=== PATIENT | female | born 1955 | race Caucasian/White ===

== ENCOUNTER 2016-12-15 08:27 | Inpatient (IN) | payer OTHER, MEDICARE ==
[~2016-12-15] VITALS: Ht 152.4 cm; Wt 59.4 kg
[~2016-12-15 08:27] MED LIST: AMOXICILLIN500 M3 PO; HALDOL 0.5MG T0.5 MG PO; QUETIAPINE FUM100 MG PO; TRAZODONE HCL50 M1 PO; ZOFRAN4 M1 SL
--- NOTE | 2016-12-15 08:37 | NUR ---
P presents to ER with sister who states patient has MR and has a hx of having behavioral outburts. Pt's sister states that patient has been more aggitated lately. She states patient peed in her bed last night which is not her norm. She states patient has also been constipated lately. Per sister patient had a small bowel movement this am. Pt tearful in triage.
--- NOTE | 2016-12-15 08:38 | NUR ---
PT TO [facility] RM 6 AWAITING PROVIDER EVAL
[2016-12-15] MEDS ORDERED: SEROQUEL50 M1 PO (08:42)
[2016-12-15] MEDS ORDERED: COLACE100 M1 PO (08:43)
[2016-12-15] MEDS ORDERED: FLAXSEED340 GM PO (08:44)
--- NOTE | 2016-12-15 08:45 | ED GENERAL ADULT ---
History of Present Illness General Chief Complaint: General Adult Stated Complaint: ?CONSTIPATION ?UTI/PT ACTING OUT Source: patient, family, old records Exam Limitations: poor historian (history of MR) Vital Signs & Intake/Output Vital Signs & Intake/Output Vital Signs Date Time Temp Pulse Resp B/P Pulse O2 O2 Flow FiO2 Ox Delivery Rate 12/15 1427 97.9 98 18 145/82 99 Room Air 12/15 1329 97.9 107 20 138/60 99 Room Air 12/15 0922 Room Air Room Air 12/15 0833 97.5 87 20 136/84 98 Room Air Allergies Coded Allergies: NO KNOWN ALLERGIES (12/15/16) Reconcile Medications Docusate Sodium (Colace) 100 MG CAPSULE 1 CAP PO BIDP PRN CONSTIPATION ( Reported) Flaxseed 340 GM POWDER 1 TSP PO D CONSTIPATION (Reported) Quetiapine Fumarate 100 MG TAB 1 TAB PO AT BEDTIME MENTAL HEALTH (Reported) Quetiapine Fumarate (Seroquel) 50 MG TABLET 1 TAB PO QAM MENTAL HEALTH ( Reported) Trazodone HCl 50 MG TABLET 0.5 TAB PO BID MENTAL HEALTH (Reported) Triage Note: P presents to ER with sister who states patient has MR and has a hx of having behavioral outburts. Pt's sister states that patient has been more aggitated lately. She states patient peed in her bed last night which is not her norm. She states patient has also been constipated lately. Per sister patient had a small bowel movement this am. Pt tearful in triage. Triage Nurses Notes Reviewed? yes HPI: Patient is a 61-year-old female with a history of mental retardation brought in by her sister for evaluation of agitation, constipation, abnormal urination. She reports symptoms onset yesterday. Patient was incontinent of urine multiple times over night which is unusual for her. Patient has not had a bowel movement for a couple of days, took flaxseed and stool softener with minimal bowel movement this morning. Patient's sister reports she has been more agitated than normal. Denies vomiting, fevers, chills, chest pain Past History Travel History Traveled to [place] past 21 day No Medical History Any Pertinent Medical History? see below for history Neurological: seizure, MR EENT: NONE Cardiovascular: NONE Respiratory: NONE Gastrointestinal: NONE Hepatic: cholelithiasis Renal: NONE Musculoskeletal: NONE Psychiatric: BEHAVIOR ISSUES MENTALLY CHALLENGED Endocrine: NONE Blood Disorders: NONE Cancer(s): NONE ARC CUTTER/Reproductive: NONE History of MRSA: No History of VRE: No History of CDIFF: No Surgical History Surgical History: non-contributory Psychosocial History Who do you live with Sister What is your primary language Vietnamese Tobacco Use: Never used Family History Family History, If Any: MOTHER SISTER FATHER Relation not specified for: FH: breast cancer FH: heart disease FH: stroke Hx Contributory? No Review of Systems Review of Systems Constitutional: Denies: chills, fever. EENTM: Reports: no symptoms. Respiratory: Denies: cough, short of breath. Cardiovascular: Denies: chest pain. GI: Reports: see HPI. Genitourinary: Reports: see HPI. Musculoskeletal: Reports: no symptoms. Skin: Reports: no symptoms. Neurological/Psychological: Reports: see HPI. Denies: headache. Hematologic/Endocrine: Reports: no symptoms. Immunologic/Allergic: Reports: no symptoms. Physical Exam Physical Exam General Appearance: well developed/nourished, alert, awake Head: atraumatic, normal appearance Eyes: Bilateral: normal appearance, PERRL, EOMI. Ears, Nose, Throat: normal pharynx, normal ENT inspection, hearing grossly normal Neck: normal inspection, supple, full range of motion Respiratory: normal breath sounds, chest non-tender, no respiratory distress, lungs clear Cardiovascular: regular rate/rhythm Gastrointestinal: normal bowel sounds, soft, diffuse lower abdominal tenderness Back: normal inspection, normal range of motion Extremities: normal inspection, normal capillary refill, normal range of motion, no edema Neurologic/Psych: no motor/sensory deficits, awake, alert, oriented x 3, normal gait, normal mood/affect Skin: intact, normal color, warm/dry Lymphatic: no anterior cervical nenita Core Measures ACS in differential dx? No CVA/TIA Diagnosis: No Severe Sepsis Present: No Septic Shock Present: No Progress Differential Diagnoses I considered the following diagnoses in my evaluation of the patient: Constipation, urinary tract infection, behavioral outbursts, intra-abdominal infection, electrolyte abnormalities, small bowel traction, colitis, diverticulitis Plan of Care: Orders Procedure Date/time Status Regular Diet 12/16 D Active Regular Diet 12/15 L Complete Regular Diet 12/15 D Active Pathway - chart 12/15 1907 Active House Staff 12/15 1907 Active SOCIAL WORK CONSULT 02/23 1908 Active Code Status 12/15 1908 Active Patient Data 12/15 1724 Active Admit to inpatient 12/15 1718 Active Intake & Output 12/15 1210 Active CULTURE,URINE 12/15 0852 Active URINALYSIS 12/15 0852 Complete LACTIC ACID 12/15 0852 Complete COMPREHENSIVE METABOLIC PANEL 12/15 851 Complete CBC WITHOUT DIFFERENTIAL 12/15 0852 Complete VTE Mechanical Prophylaxis 12/15 UNK Active Current Medications Sig/Yessica Start time Last Medication Dose Stop Time Status Admin Enoxaparin Sodium 40 MG DAILY 12/16 1000 AC (Lovenox) Laboratory Tests 12/15/16 1152: Lactic Acid Cancelled 12/15/16 0917: Anion Gap 10, Estimated GFR > 60, BUN/Creatinine Ratio 18.6, Glucose 90, Lactic Acid 0.7, Calcium 9.3, Total Bilirubin 0.6, AST 14, ALT 29, Alkaline Phosphatase 91, Total Protein 7.3, Albumin 4.1, Globulin 3.2, Albumin/Globulin Ratio 1.3, CBC w Diff NO MAN DIFF REQ, RBC 4.52, MCV 85.0, MCH 28.3, RDW 12.8, MPV 8.8, Gran % 72.9, Lymphocytes % 18.7 L, Monocytes % 6.5, Eosinophils % 1.5, Basophils % 0.4, Absolute Granulocytes 4.7, Absolute Lymphocytes 1.2, Absolute Monocytes 0.4, Absolute Eosinophils 0.1, Absolute Basophils 0, PUBS MCHC 33.3 12/15/16 0900: Urine Color YEL, Urine Clarity CLEAR, Urine pH 6.0, Ur Specific [place] 1.010, Urine Protein NEG, Urine Ketones NEG, Urine Nitrite NEG, Urine Bilirubin NEG, Urine Urobilinogen 0.2, Ur Leukocyte Esterase NEG, Ur Microscopic EXAM NOT REQUIRED, Urine Hemoglobin NEG, Urine Glucose NEG Microbiology 12/15 0900 URINE ROUT: Urine Culture - RECD 12/15/2016 10:56:45 AM: Results of labs and imaging discussed with the patient's sister. Patient's sister requesting case management evaluation for potential placement of patient due to her aggressive behavior at home and inability to safely take care of the patient home. Discussed with Dennise. (ANA MARIA LANCE,AMANDA) Diagnostic Imaging: Viewed by Me: CT Scan. Discussed w/RAD: CT Scan. Radiology Impression: PATIENT: KALYANI MONSALVE PRESENT AGE: 61 PATIENT ACCOUNT NO: [id number] : 54 LOCATION: [facility] ORDERING PHYSICIAN: AMANDA LANCE SERVICE DATE: 12/15/16- EXAM TYPE: CAT - CT ABD & PELVIS W IV CONTRAST EXAMINATION: CT ABDOMEN AND PELVIS WITH CONTRAST CLINICAL INFORMATION: Constipation, lower abdominal pain and tenderness COMPARISON: None TECHNIQUE: Multidetector volumetric imaging was performed of the abdomen and pelvis before and after the IV administration of 98 mL of Optiray 320 intravenous contrast. Sagittal and coronal reformatted images were obtained on the technologist's workstation. DLP: 344.71 mGy-cm FINDINGS: LUNG BASES: The visualized lung bases are unremarkable. LIVER, GALLBLADDER, AND BILIARY TREE: The liver is normal in size, shape, and attenuation. There is an approximately 1.0 cm left hepatic lobe cyst. No biliary ductal dilatation is present. The gallbladder is unremarkable. PANCREAS: Unremarkable. SPLEEN: Unremarkable. ADRENAL GLANDS: Unremarkable. KIDNEYS AND URETERS: The kidneys are normal in size, shape, and attenuation. There is a punctate right lower pole renal calculus. No hydronephrosis, hydroureter, or obstructing calculi seen. No perinephric stranding. BLADDER: Prominently distended without wall thickening. GASTROINTESTINAL TRACT: The small and large bowel are unremarkable, without evidence of obstruction or wall thickening. There is a moderate amount of stool in the colon. No free fluid or free air is seen. ABDOMINAL WALL: No significant hernia is appreciated. LYMPH NODES: Normal. VASCULAR: Scattered atherosclerotic calcifications are present. PELVIC VISCERA: There are coarse calcifications in the uterus, most likely secondary to fibroids. OSSEOUS STRUCTURES: Degenerative changes are present in the lower thoracic spine. IMPRESSION: 1. Moderate amount of stool in the colon. No evidence of bowel obstruction or abnormal wall thickening. 2. Prominent distention of the urinary bladder. 3. Punctate right lower pole renal calculus, without hydronephrosis. 4. Coarse calcifications in the uterus, most consistent with fibroids. DICTATED BY: OSMANY ZUNIGA MD DATE/ TIME DICTATED:12/15/161013 CANDY VENDOR:SUE DATE/TIME TRANSCRIBED: 12/15/161013 CONFIDENTIAL, DO NOT COPY WITHOUT APPROPRIATE AUTHORIZATION. < Electronically signed in Other Vendor System> SIGNED BY: OSMANY ZUNIGA MD 12/15/16 1032 Initial ED EKG: none Departure Departure Disposition: STILL A PATIENT Condition: Stable Clinical Impression Primary Impression: Hospital admission due to social situation Secondary Impressions: Constipation, Urinary incontinence Referrals: Kayce ZHAO MD (PCP/Family) Departure Forms: Customer Survey General Discharge Information Admission Note Spoke With: JOSE RODRIGUEZ M.D Documentation of Exam: Documentation of any treatments & extenuating circumstances including Concerns Regarding Discharge (functional status, medication knowledge or non-compliance, living conditions, etc.) that warrant an admission rather than observation: Patient combative at home, patient's sister is not able to take care of her. Will require long-term care placement. Patient will be admitted as a social admission to work on alf placement. Critical Care Note Critical Care Note Critical Care Time: non-applicable
--- NOTE | 2016-12-15 08:46 | NUR ---
CASI RODGERS AT BEDSIDE FOR EVAL
--- NOTE | 2016-12-15 08:54 | NUR ---
PT TO/FROM BATHROOM FOR URINE SPECIMEN
--- NOTE | 2016-12-15 09:02 | NUR ---
URINE TRIO OBTAINED/SENT TO LAB
--- NOTE | 2016-12-15 09:21 | NUR ---
IV ACCESS ESTABLISHED, #20 LAC LABS DRAWN/SENT (SST, LAVENDAR, BLUE AND SPEAR TOP TUBES)
[2016-12-15 09:34] LABS: ABSOLUTE BASOPHIL COUNT 0 /CUMM (0.0-0.2); ABSOLUTE EOSINOPHIL COUNT 0.1 /CUMM (0.0-0.7); ABSOLUTE GRANULOCYTE CT 4.7 /CUMM (1.4-6.5); ABSOLUTE LYMPH COUNT 1.2 /CUMM (1.2-3.4); ABSOLUTE MONOCYTE COUNT 0.4 /CUMM (0.10-0.60); BASOPHIL % 0.4 % (0.0-2.0); EOSINOPHIL % 1.5 % (0-5); GRANULOCYTE % 72.9 % (42.2-75.2); HEMATOCRIT 38.4 % (37-47); MEAN CORPUSCULAR HGB 28.3 PG (27.0-31.0); MEAN CORPUSCULAR HGB CONC 33.3 G/DL (33.0-37.0); MEAN PLATELET VOLUME 8.8 FL (7.4-10.4); PLATELET COUNT 284 /CUMM (130-400); RBC DISTRIBUTION WIDTH 12.8 % (11.5-14.5); RED BLOOD CELL CT 4.52 /CUMM (4.20-5.40); WHITE BLOOD CELL COUNT 6.5 /CUMM (4.8-10.8)
--- NOTE | 2016-12-15 10:32 | CT SCAN REPORT ---
EXAMINATION: CT ABDOMEN AND PELVIS WITH CONTRAST CLINICAL INFORMATION: Constipation, lower abdominal pain and tenderness COMPARISON: None TECHNIQUE: Multidetector volumetric imaging was performed of the abdomen and pelvis before and after the IV administration of 98 mL of Optiray 320 intravenous contrast. Sagittal and coronal reformatted images were obtained on the technologist's workstation. DLP: 344.71 mGy-cm FINDINGS: LUNG BASES: The visualized lung bases are unremarkable. LIVER, GALLBLADDER, AND BILIARY TREE: The liver is normal in size, shape, and attenuation. There is an approximately 1.0 cm left hepatic lobe cyst. No biliary ductal dilatation is present. The gallbladder is unremarkable. PANCREAS: Unremarkable. SPLEEN: Unremarkable. ADRENAL GLANDS: Unremarkable. KIDNEYS AND URETERS: The kidneys are normal in size, shape, and attenuation. There is a punctate right lower pole renal calculus. No hydronephrosis, hydroureter, or obstructing calculi seen. No perinephric stranding. BLADDER: Prominently distended without wall thickening. GASTROINTESTINAL TRACT: The small and large bowel are unremarkable, without evidence of obstruction or wall thickening. There is a moderate amount of stool in the colon. No free fluid or free air is seen. ABDOMINAL WALL: No significant hernia is appreciated. LYMPH NODES: Normal. VASCULAR: Scattered atherosclerotic calcifications are present. PELVIC VISCERA: There are coarse calcifications in the uterus, most likely secondary to fibroids. OSSEOUS STRUCTURES: Degenerative changes are present in the lower thoracic spine. IMPRESSION: 1. Moderate amount of stool in the colon. No evidence of bowel obstruction or abnormal wall thickening. 2. Prominent distention of the urinary bladder. 3. Punctate right lower pole renal calculus, without hydronephrosis. 4. Coarse calcifications in the uterus, most consistent with fibroids.
--- NOTE | 2016-12-15 11:03 | NUR ---
PER CASI RODGERS PT IS A CASE MANAGEMENT HOLD TO SEEK PLACEMENT
--- NOTE | 2016-12-15 11:06 | NUR ---
LUNCH TRAY ORDERED AT THIS TIME FROM [facility] IN [facility]
--- NOTE | 2016-12-15 11:38 | NUR ---
LUNCH TRAY PROVIDED TO PATIENT
--- NOTE | 2016-12-15 11:45 | NUR ---
12/15 CASE MGMT- MET WITH PT AND PT SISTER WHOM STATES PT RESIDES WITH HER AND THAT LATELY PT HAS BEEN HAVING SOME BEHAVIOR ISSUES AT HOME AND SISTER IS UNABLE TO CARE FOR PT AT HOME ANY LONGER. PT SISTER IS GUARDIAN OF PT. PT IS FOLLOWED BY [facility] MGMT HAYLEE [phone] AND VISITS [facility] VERY OFTEN AND JOHNATHON MATHEWS FOLLOWS PT AT [facility] [phone]
--- NOTE | 2016-12-15 15:00 | NUR ---
12/15 CASE MGMT- CALL TO [facility] RECEPTION CLERK AND MESSAGE LEFT. CALL [facility] AND SPOKE WITH BISI WHOM STATES PT IS THERE OFTEN AND IS KEPT VERY BUSY SO BEHAVIOR THERE IS NOT THAT BAD. PT CAN AT TIMES GET IMPATIENT AMD AGITATED AT TIMES APPROX LESS THAN 2 X A YEAR CAN GET VERBALLY / PHYSICALLY AGGRESSIVE BUT IF PT IS KEPT BUSY SHE ACTS WELL. BISI ALSO STATES HE SPOKE WITH HAYLEE AT [facility] TODAY AND STATES THAT MAKE STATED TO HIM THAT HE IS [facility] OF THE OFFICE TOMORROW AND WILL BE BACK MONDAY. CASE MGMT AWAITING RETURN CALL BACK FROM [facility] AND WILL START PAPERWORK FOR PLACEMENT.
--- NOTE | 2016-12-15 15:42 | NUR ---
DENA FROM CASE MANAGEMENT AT BEDSIDE AT PRESENT
--- NOTE | 2016-12-15 16:35 | NUR ---
12/15 CASE MGMT- SPOKE WITH PT SISTER BABS AND PT SISTERS REGARDING PLAN OF CARE. PT SISTER STATES SHE HAS A HEADACHE AND HER BP HAS BEEN ELEVATED AND SHE JUST CAN'T MANAGE PT AT HOME ANY MORE- PT SISTER AWARE WILL BE ISSUED DENIAL LETTER DUE TO NOT MEETING CRITERIA FOR MEDICAL ADMISSION. CASE MGMT WILL CONTINUE TO FOLLOW.
--- NOTE | 2016-12-15 16:42 | NUR ---
DINNER TRAY ORDERED FOR PATIENT, SPOKE WITH COS[employer] IN CASE MANAGEMENT
--- NOTE | 2016-12-15 16:48 | NUR ---
12/15 CASE MGMT- SPOKE WITH PT SISTER BABS AT BEDSIDE MADE AWARE OF DENIAL LETTER AT 4:48PM ON 12/15/16 AND REFUSING TO SIGN DENIAL LETTER. WAS GIVEN A COPY OF DENIAL LETTER.
--- NOTE | 2016-12-15 17:55 | History & Physical ---
SHIREEN MCDOWELL,ELIZA 12/15/16 1755: General Information and HPI Allergies/Medications Allergies: Coded Allergies: NO KNOWN ALLERGIES (12/15/16) Home Med list Docusate Sodium (Colace) 100 MG CAPSULE 1 CAP PO BIDP PRN CONSTIPATION ( Reported) Flaxseed 340 GM POWDER 1 TSP PO D CONSTIPATION (Reported) Quetiapine Fumarate 100 MG TAB 1 TAB PO AT BEDTIME MENTAL HEALTH (Reported) Quetiapine Fumarate (Seroquel) 50 MG TABLET 1 TAB PO QAM MENTAL HEALTH ( Reported) Trazodone HCl 50 MG TABLET 0.5 TAB PO BID MENTAL HEALTH (Reported) Past History Travel History Traveled to [facility] past 21 day No Medical History Neurological: seizure, MR EENT: NONE Cardiovascular: NONE Respiratory: NONE Gastrointestinal: NONE Hepatic: cholelithiasis Renal: NONE Musculoskeletal: NONE Psychiatric: BEHAVIOR ISSUES MENTALLY CHALLENGED Endocrine: NONE Blood Disorders: NONE Cancer(s): NONE 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
--- NOTE | 2016-12-15 18:11 | NUR ---
PT OUT OF ROOM ASKING FOR "NIGHT TIME PILLS", CASI RODGERS STATED HE WILL ORDER HER MEDICATIONS, PT BACK TO ROOM, STEADY GAIT NOTED.
--- NOTE | 2016-12-15 18:31 | NUR ---
PT MEDICATED WITH 100MG SEROQUEL PER EMAR
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
--- NOTE | 2016-12-15 19:37 | Admission Certification ---
Admission Certification Certification Statement - As attending physician, I certify that at the time of - admission, based on clinical presentation, severity of - symptoms, need for further diagnostic testing and - therapeutic interventions, and risk of adverse outcomes - without in-hospital treatment, in my clinical assessment, - this patient requires an acute hospital stay for a minimum - of two nights or longer. I have also considered psychsocial - factors such as support system, advanced age, financial - issues, cognitive issues, and failed out-patient treatments, - past re-admission history, safety of patient, and lack of - compliance as applicable. Specific rationale supporting this admission is: Agitation, constipation, social admission.
--- NOTE | 2016-12-15 19:46 | NUR ---
PT PLACED IN HOSPITAL BED, MOVED TO [facility], GIVEN BLANKETS, LIGHTS DIMMED FOR COMFORT
--- NOTE | 2016-12-15 20:03 | NUR ---
DR. WESLEY TO BEDSIDE FOR EVALUATION.
--- NOTE | 2016-12-15 20:44 | NUR ---
REPORT GIVENT TO MARIE KIRAN
--- NOTE | 2016-12-15 21:07 | NUR ---
PT TO ROOM 226 BED 1
--- NOTE | 2016-12-15 22:00 | NUR ---
PT ARRIVED TO FLOOR WITH SISTER AT BEDSIDE. VSS, DENIES PAIN. BED ALARM ON, ORIENTED TO THE FLOOR. CALL MURDOCK IN REACH.
[2016-12-15 22:39] VITALS: BP 130/68
[2016-12-16 06:59] VITALS: BP 106/70
--- NOTE | 2016-12-16 08:40 | NUR ---
Physical Therapy: Consult received and chart reviewed. Pt observed ambulating around unit with steady gait. Acute skilled PT is not indicated at this time. Thank you.
--- NOTE | 2016-12-16 12:00 | NUR ---
LATE ENTRY PT ALERT & CONFUSED, NOT ORIENTED TO ENVIRONMENT, WANDERING HALLS AND INTO OTHER PATIENT ROOMS. PSM ORDERED AT 0853 FOR DISORIENTATION. REPORT GIVEN TO SHARLENE WILLIS. WILL MONITOR.
[2016-12-16 13:55] VITALS: BP 120/60
--- NOTE | 2016-12-16 15:08 | PN- Housestaff ---
Subjective Follow-up For: Acute on chronic agitation Placement Subjective: A 61-year-old lady with a significant history of mental retardation since infant years presents to [facility] ED after sister noted that she has had increased agitation and is not able to be easily redirected and a home. Patient sister is sick in help in placement at a facility. No acute complaints other than incontinence is reported by family. Nursing staff reports the patient occasionally attempts to wonder off her room. Review of Systems Constitutional: Reports: no symptoms. Objective Last 24 Hrs of Vital Signs/I&O Vital Signs Date Time Temp Pulse Resp B/P Pulse O2 O2 Flow FiO2 Ox Delivery Rate 12/16 1355 97.2 100 20 120/60 96 Room Air 12/16 1336 Room Air Room Air 12/16 1317 Room Air Room Air 12/16 0659 97.6 93 20 106/70 97 Room Air 12/15 2239 97.6 84 20 130/68 96 Room Air 12/15 2104 98.0 90 18 142/74 98 Room Air Room Air Intake & Output 12/16 1600 12/16 0800 12/16 0000 Intake Total 120 Output Total Balance 120 Intake, Oral 120 Patient 59.874 kg Weight Physical Exam General Appearance: Alert, impaired cognitive function Skin: No Rashes, No Significant Lesion Lymphatic: Axillary nl, Cervical nl Cardiovascular: Regular Rate, Normal S1, Normal S2, No Murmurs, Gallops, Rubs Lungs: Clear to Auscultation, Normal Air Movement Abdomen: Normal Bowel Sounds, Soft, No Tenderness Neurological: Normal Gait, Strength at 5/5 X4 Ext, Normal Tone, Sensation Intact Extremities: No Cyanosis, No Edema, Normal Pulses, No Tenderness/Swelling Assessment/Plan Assessment: This is a 61-year-old lady with a significant history of mental retardation on on Seroquel is presented to [facility] ED by sister who reports recent increased episodes of agitation. Patient sister is seeking assistance in placement. Assessment and plan #Behavior changes Reported increased agitation and aggression at home. Currently on seroquel medication. Await social in watch caser recommendation and plans for placement. We'll continue to avoid delirium triggers oriented and continue redirecting techniques. Will assess if patient needs a quality assurance monitor final if she continues to attempt to ambulate outside her room. #Constipation Resolved. With reported 1 bowel movement yesterday. Problem List: 1. Hospital admission due to social situation 2. Altered mental status Pain Ratin Pain Location: none Pain Goal: Pain 4 or less Pain Plan: none Tomorrow's Labs & Rationales: none
--- NOTE | 2016-12-16 15:42 | PN- Att Addend ---
Attending MD Review Statement Attending Statement Attending MD Statement: examined this patient, discuss w/resident/PA/PLAQUE MAKER, agreed w/resident/PA/PLAQUE MAKER, reviewed EMR data (avail), discussed w/nursing Attending Assessment/Plan: Vital Signs Date Time Temp Pulse Resp B/P Pulse O2 O2 Flow FiO2 Ox Delivery Rate 12/16 1355 97.2 100 20 120/60 96 Room Air 12/16 1336 Room Air Room Air 12/16 1317 Room Air Room Air 12/16 0659 97.6 93 20 106/70 97 Room Air 12/15 2239 97.6 84 20 130/68 96 Room Air 12/15 2104 98.0 90 18 142/74 98 Room Air Room Air 61 years old lady with severe mental retardation IQ of a 3 years old without significant past medical history who lives with her sister and the sister who is the guardian provide support for the patient in all her ADLs. pt admitted with agiation. Case management looking for placement. d/w pts sister at bedside the care plan.
--- NOTE | 2016-12-16 16:08 | Discharge Summary ---
Visit Information Visit Dates Admission Date: 12/15/16 Discharge Date: 01/02/2017 Hospital Course Course Attending Physician: RANJITH CASTORNEA MD Primary Care Physician: Kayce ZHAO MD [facility] Course: Ms. Smart is a 61-year-old lady with a PMH of developmental delay who resides with her sister as a live-in guardian and provides full-time support with all her ADLs. Her mental retardation has been present since requiring 24 hour assistance with ADLs. Over the past 6 months she does report noticeable aggressive behavior with throwing things and punching her. 3 days prior to presentation she noted that she had not had a bowel movement which was also associated with urinary incontinence. On presentation in the emergency room the patient was unable to provide any pertinent review of systems. VS on admission: BP 136/84, HR 87, RR 20, SPO2 98% on RA, T 97.5 Physical exams: Alert, cooperative not oriented. No significant lesions in the skin. Moist mucous members. RRR, normal S1/S2. Lungs CTA BL. Normal bowel sounds, no tenderness to palpation. Pertinent labs: H&H 12.8/30.4, WBC 6.5, BUN/CR 13/0.7, sodium 143, potassium 3.9 , [place] 102, bicarbonate 31 CT abdomen pelvis: Moderate amount of stool in the colon. No evidence of bowel obstruction or abnormal wall thickening. Prominent distention of the urinary bladder. Punctate right lower pole renal calculus, without hydronephrosis. Coarse calcifications in the uterus, most consistent with fibroids. The patient to the general medicine floor for management of the following problems: 1. Constipation 2. Developmental delay/mental sedation Hospital course: 1. Constipation * CT findings as indicated above. We started the patient on scheduled senna 2 tabs PO daily with noticeable resolution of constipation 2. Developmental delay/mental sedation * Continued her Seroquel 50 mg PO daily. Patient was easily reoriented to verbal commands and companionship. The patient's sister mentioned how she looks forward to attending a weekly group classes but did appear to assimilate extremelywell during her hospital stay here at [facility] * Case management was successful with establishing rat exterminator care at [facility] pending DDS follow up for an appropriate residential 3. DVT prophylaxis * ALPs 4. CODE STATUS * DNR/DNI Allergies: Coded Allergies: NO KNOWN ALLERGIES (12/15/16) Disposition Summary Disposition Principal Diagnosis: Constipation Additional Diagnosis: Pending placement Discharge Disposition: SNF Discharge Instructions General Discharge Information Code Status: Do Not Resucitate/Intubat Patient's Diet: Regular diet Patient's Activity: As tolerated Follow-Up Instructions/Appts: Please follow-up with her PCP within one week after discharge. History, medications as directed Medications at Discharge Discharge Medications: Stop taking the following medications: Trazodone HCl (Trazodone HCl) 50 MG TABLET ORAL TWICE DAILY Qty = 30 Continue taking these medications: Quetiapine Fumarate (Quetiapine Fumarate) 100 MG TAB 1 Tablet ORAL AT BEDTIME Days = 90 Comments: NOT GIVEN IN HOSPITAL Quetiapine Fumarate (Seroquel) 50 MG TABLET 1 Tablet ORAL Every Morning Comments: Last Taken: 01/02/17 Time: 0930 Docusate Sodium (Colace) 100 MG CAPSULE 1 Capsule ORAL 2 x Daily as needed as needed for CONSTIPATION Comments: Last Taken: 01/01/17 Time: 0920 Flaxseed (Flaxseed) 340 GM POWDER 1 Teaspoonful ORAL Every Day Comments: NOT GIVEN Start taking the following new medications: Loratadine (Loratadine) 10 MG TABLET 10 Milligram ORAL DAILY Qty = 30 No Refills Lactulose (Lactulose) 20 GRAM/30 ML SOLUTION 20 Gram ORAL DAILY Qty = 30 No Refills Emollient Combination No.92 (Lubriderm Daily Moisture) 177 ML LOTION 1 Application On the skin THREE TIMES DAILY as needed for DRY SKIN Qty = 30 No Refills Copies To: Kayce ZHAO MD Attending MD Review Statement Documenting Attending: MILTON DEVINE MD Other Findings: The patient was seen and discussed with house staff. Agree with plan of care upon discharge.
[2016-12-17 06:30] VITALS: BP 124/60
--- NOTE | 2016-12-17 08:50 | PN- Housestaff ---
BETHANY MCDOWELL,ERNA 12/17/16 0849: Subjective Follow-up For: Agitation Long-term placement Subjective: Patient seen and examined. She is seen sitting upright in her chair playing with some toys happily in no acute distress. At her bedside is her family member whom is up-to-date about her medical condition and has no further questions at this time. There is a patient safety monitor at bedside whom offers no further collateral information regarding overnight events. Patient reports feeling well and that she had a bowel movement this morning, further subjective complaints are unobtainable. Review of systems is unobtainable. No overnight events reported. Review of Systems Constitutional: Reports: see HPI. Objective Last 24 Hrs of Vital Signs/I&O Vital Signs Date Time Temp Pulse Resp B/P Pulse O2 O2 Flow FiO2 Ox Delivery Rate 12/17 0630 97.6 108 18 124/60 96 Room Air 12/16 1355 97.2 100 20 120/60 96 Room Air 12/16 1336 Room Air Room Air 12/16 1317 Room Air Room Air Intake & Output 12/17 1600 12/17 0800 12/17 0000 Intake Total 500 Output Total Balance 500 Intake, Oral 500 Physical Exam General Appearance: Alert, Cooperative, No Acute Distress Other Physical Findings: General -well-developed, well-nourished elderly woman in no acute distress HEENT - NCAT, PERRL, EOMI, anicteric sclera Cardio - S1, S2 w/o murmurs/gallops/rubs Resp - CTA bilaterally w/o wheezing/rhochi/crackles GI - soft, nontender, nondistended, bowel sounds present Neuro - Awake and alert, CN II - XII grossly intact, mental impairment at baseline Extremities -minimal pulses, no cyanosis/clubbing/edema Current Medications: Current Medications Sig/Yessica Start time Last Medication Dose Route Stop Time Status Admin Acetaminophen 650 MG Q6P PRN 12/15 2199 AC PO Acetaminophen 1,000 MG Q6P PRN 12/15 2199 AC IV Docusate Sodium 100 MG BID 12/15 2129 AC 12/17 PO 0855 Enoxaparin Sodium 40 MG DAILY 12/16 1000 AC 12/17 SC 0856 Morphine Sulfate 1 MG Q6-PRN PRN 12/15 2199 AC IV Polyethylene Glycol 17 GM DAILY 02/23 2130 AC 02/25 PO 0856 Quetiapine Fumarate 50 MG QAM 12/17 1000 AC 12/17 PO 0855 Quetiapine Fumarate 100 MG 2200 12/16 2200 AC 12/16 PO 2117 Senna/Docusate Sodium 2 TAB DAILY 12/150 AC 12/17 PO 0855 Assessment/Plan Assessment: Patient remains calm while under supervision of family members or patient safety monitor. Placement is still pending per case management and bed search. Maintain patient safety monitor for increased disorientation/agitation. Problem list: -History of mental retardation, pending long-term placement -Increased agitation Plan: -General medicine -Avoid delirium triggers -Patient safety monitor -Continue home medications -Follow-up case management recommendations, bed search pending -Bowel regimen -DVT prophylaxis Problem List: 1. Mental retardation Pain Ratin Pain Location: None Pain Goal: Remain pain free Pain Plan: Pain Pathway Tomorrow's Labs & Rationales: None ACOSTA MCDOWELL,ALEKSANDAR 12/17/16 1206: Attending MD Review Statement Attending Statement Attending MD Statement: examined this patient, discuss w/resident/PA/POCKETED SPRING MACHINE OPERATOR, agreed w/resident/PA/POCKETED SPRING MACHINE OPERATOR, reviewed EMR data (avail), discussed with nursing, discussed with case mgmt Attending Assessment/Plan: 61-year-old female with mental retardation since childhood here with escalating behavior in terms of agitation and combativeness and case management is actively working on getting her placed. She has a sitter for behavioral issues and wandering into other patient's rooms.
[2016-12-17 14:50] VITALS: BP 110/6
[2016-12-17 22:24] VITALS: BP 108/60
[2016-12-18 06:35] VITALS: BP 112/60
--- NOTE | 2016-12-18 07:17 | PN- Housestaff ---
MARISSA MCDOWELL,ROBBIN 12/18/16 0716: Subjective Follow-up For: Agitation Long-term placement Subjective: Patient is awake and alert, is walking on the floor and reports has had bowel movement. She is dressed in savannah mouse clothes and is waiting to change her clothes. Appears in no distress. Review of Systems Constitutional: Denies: chills, fever, weakness. Respiratory: Reports: no symptoms. Gastrointestinal: Reports: no symptoms. Objective Last 24 Hrs of Vital Signs/I&O Vital Signs Date Time Temp Pulse Resp B/P Pulse O2 O2 Flow FiO2 Ox Delivery Rate 12/18 0635 97.6 87 18 112/60 96 Room Air 12/17 2224 97.8 94 18 108/60 95 Room Air 12/17 1450 97.9 109 18 110/6 97 Room Air Intake & Output 12/18 1600 12/18 0800 12/18 0000 Intake Total 100 Output Total Balance 100 Intake, Oral 100 Physical Exam General Appearance: Alert, Cooperative, No Acute Distress Skin: No Rashes, No Breakdown, No Significant Lesion HEENT: Atraumatic, EOMI Neck: Supple, No JVD Cardiovascular: Regular Rate, Normal S1, Normal S2, No Murmurs Lungs: Clear to Auscultation, Normal Air Movement Abdomen: Normal Bowel Sounds, Soft, No Tenderness Neurological: Normal Gait, Strength at 5/5 X4 Ext, Normal Tone, Cranial Nerves 3 -12 NL Extremities: No Clubbing, No Cyanosis, No Edema, Normal Pulses, No Tenderness/ Swelling Vascular: Normal Pulses, Pulses Symmetrical Current Medications: Current Medications Sig/Yessica Start time Last Medication Dose Route Stop Time Status Admin Acetaminophen 650 MG Q6P PRN 12/15 2199 AC PO Acetaminophen 1,000 MG Q6P PRN 12/15 2199 AC IV Docusate Sodium 100 MG BID 12/15 2129 AC 12/17 PO 0855 Enoxaparin Sodium 40 MG DAILY 12/16 1000 AC 12/17 SC 0856 Morphine Sulfate 1 MG Q6-PRN PRN 12/15 2199 AC IV Polyethylene Glycol 17 GM DAILY 12/15 2129 AC 12/17 PO 0856 Quetiapine Fumarate 50 MG QAM 12/17 1000 AC 12/17 PO 0855 Quetiapine Fumarate 100 MG 12/16 AC 12/17 PO 1938 Senna/Docusate Sodium 2 TAB DAILY 12/150 AC 12/17 PO 0855 Assessment/Plan Assessment: Patient remains calm while under supervision of family members or patient safety monitor. Placement is still pending per case management and bed search. Maintain patient safety monitor for increased disorientation/agitation. Problem list: -History of mental retardation, pending long-term placement -Increased agitation Plan: -General medicine -Avoid delirium triggers -Patient safety monitor -Continue home medications -Follow-up case management recommendations, bed search pending -Bowel regimen -DVT prophylaxis Problem List: 1. Mental retardation 2. Hospital admission due to social situation Pain Ratin Pain Location: none Pain Goal: Pain 4 or less Pain Plan: mild pp Tomorrow's Labs & Rationales: none ALEKSANDAR SHANE MD 12/18/16 0751: Attending MD Review Statement Attending Statement Attending MD Statement: examined this patient, discuss w/resident/PA/DECK WORKER, agreed w/resident/PA/DECK WORKER, reviewed EMR data (avail), discussed with nursing Attending Assessment/Plan: Patient with severe developmental disability and mental retardation who is here with agitated and combative behavior. She has a safety monitor .she is disoriented and walks all over the hospital and walks into other patient's rooms. We are awaiting placement.
[2016-12-18 15:20] VITALS: BP 118/76
[2016-12-18 22:17] VITALS: BP 92/44
[2016-12-18 22:59] VITALS: BP 104/60
[2016-12-19 06:21] VITALS: BP 110/70
--- NOTE | 2016-12-19 07:25 | PN- Housestaff ---
See Addendum Subjective Follow-up For: Agitation Subjective: Patient seen and examined bedside. Sitter in place with nursing reports indicating that patient still needs monitoring. No other acute event reported by nursing staff. Review of Systems Constitutional: Reports: no symptoms. Objective Last 24 Hrs of Vital Signs/I&O Vital Signs Date Time Temp Pulse Resp B/P Pulse O2 O2 Flow FiO2 Ox Delivery Rate 12/19 0621 97.8 90 18 110/70 100 Room Air 12/18 2259 87 104/60 96 Room Air 12/18 2217 98.1 81 18 92/44 97 Room Air 12/18 1520 97.6 84 18 118/76 100 Intake & Output 12/19 1600 12/19 0800 12/19 0000 Intake Total 100 100 Output Total Balance 100 100 Intake, Oral 100 100 Physical Exam General Appearance: Alert, Cooperative Skin: No Significant Lesion HEENT: Atraumatic, PERRLA, Mucous Membr. moist/pink Neck: Supple, No JVD Cardiovascular: Regular Rate, Normal S1, Normal S2, No Murmurs Lungs: Clear to Auscultation, Normal Air Movement Abdomen: Normal Bowel Sounds, Soft, No Tenderness, No Hepatospenomegaly Assessment/Plan Assessment: Patient remains calm while under supervision of family members or patient safety monitor. Placement is still pending per case management and bed search. Problem list: -History of mental retardation, pending long-term placement -Increased agitation -Constipation-resolved Plan: Spoke to sister over the phone and in person. Informed her that before patient goes to a facility, she is required to have not had a sitter for 24hrs. I discussed plans with sister regarding removing the sitter when she comes over and slowly monitor the patient and see if she is able to be redirected and not wander off. -Avoid delirium triggers -Patient safety monitor -Continue home medications -Follow-up case management recommendations, bed search pending. -Bowel regimen -DVT prophylaxis Problem List: 1. Mental retardation Pain Ratin Pain Location: none Pain Goal: Remain pain free Pain Plan: per pain pathway Tomorrow's Labs & Rationales: none-awiaiting placement
[2016-12-19 14:57] VITALS: BP 100/60
[2016-12-19 22:33] VITALS: BP 102/60
--- NOTE | 2016-12-20 07:23 | PN- Housestaff ---
Subjective Follow-up For: Agitation waiting for ecommerce project manager rehabilitation placement Subjective: Patient was seen and examined this morning, she has sitter. No overnight events reported by the nurse or the sitter. Vital signs are stable. No acute complaint. Review of Systems Constitutional: Denies: no symptoms. Objective Last 24 Hrs of Vital Signs/I&O Vital Signs Date Time Temp Pulse Resp B/P Pulse O2 O2 Flow FiO2 Ox Delivery Rate 12/20 1440 97.6 84 20 130/64 98 Room Air 12/20 0734 98.7 94 20 100/50 97 Room Air 12/19 2233 97.7 107 20 102/60 97 Room Air Intake & Output 12/20 1600 12/20 0800 12/20 0000 Intake Total 200 700 Output Total Balance 200 700 Intake, Oral 200 700 Number 0 Bowel Movements Physical Exam General Appearance: Alert, Cooperative, No Acute Distress Skin: No Rashes, No Breakdown, No Significant Lesion HEENT: Atraumatic, PERRLA, EOMI, Mucous Membr. moist/pink Neck: Supple Cardiovascular: Regular Rate, Normal S1, Normal S2, No Murmurs Lungs: Clear to Auscultation, Normal Air Movement Abdomen: Normal Bowel Sounds, Soft, No Tenderness Neurological: Normal Gait, Normal Speech, Strength at 5/5 X4 Ext, Normal Tone, Sensation Intact, Cranial Nerves 3-12 NL, Reflexes 2+ Extremities: No Clubbing, No Cyanosis, No Edema, Normal Pulses Assessment/Plan Assessment: Patient remains calm while under supervision of family members or patient safety monitor. Placement is still pending per case management and bed search. Problem list: -History of mental retardation, pending long-term placement -Increased agitation -Constipation Plan: #History of mental retardation, pending long-term placement -Waiting for alf rehabilitation placement versus half-way placement -Patient will continue to have 24 hour sitter for safety, given the underlying mental retardation, the 24 hour off sitter is not required in his case per heel caser -Avoid delirium triggers -Continue Patient safety monitor -Continue home medications -Bowel regimen for constipation, last bowel movement was 3 days ago -DVT prophylaxis ALPS -Code DNR DNI -Diet regular Problem List: 1. Mental retardation 2. Hospital admission due to social situation 3. Constipation Pain Ratin Pain Location: N/A Pain Goal: Pain 4 or less Pain Plan: Mild pain pathway Tomorrow's Labs & Rationales: NONE
[2016-12-20 07:34] VITALS: BP 100/50
--- NOTE | 2016-12-20 08:03 | NUR ---
Referral received from ED physician prior to patients social admit on 12/15/16. This patient is a 61 year old woman with MR. Admitted to hospital with complainta of constipation. The patient resides in [place] with her sister who is her guardian, but the sister is feeling overwhelmed and interested in placement. district sales manager has initiated bed search; due to patients MR, she will be a "level two" assessment prior to placement. Will follow peripherally and am able to support case managements efforts for appropriate discharge plan.
--- NOTE | 2016-12-20 09:07 | NUR ---
NIGHT RN SENT TEXT PAGE FOR SITTER TO BE RENEWED AT 0700. THIS RN SENT TEXT PAGE TO MD BASSETT AT 0830 FOR SITTER TO BE RENEWED. VERBALLY ASKED MD BASSETT TO RENEW SITTER AT 0845 AFTER ORDER NOT RENEWED. MD BASSETT REPLIED THAT SHE WAS IN ROUNDS AND WOULD GET TO IT WHEN SHE COULD. REMINDED THAT SITTERS HAD TO BE RENEWED EVERY 24 HOURS AND THAT SHE WAS ASKED BEFORE ROUNDS BEGAN. WILL CONTINUE TO REQUEST SITTER BE RENEWED.
--- NOTE | 2016-12-20 13:56 | PN- Att Addend ---
Attending MD Review Statement Attending Statement Attending MD Statement: examined this patient, discuss w/resident/PA/VOCATIONAL NURSE, agreed w/resident/PA/VOCATIONAL NURSE, reviewed EMR data (avail), discussed w/case mgmt Attending Assessment/Plan: Vital Signs Date Time Temp Pulse Resp B/P Pulse O2 O2 Flow FiO2 Ox Delivery Rate 12/20 0734 98.7 94 20 100/50 97 Room Air 12/19 2233 97.7 107 20 102/60 97 Room Air 12/19 1457 97.6 98 20 100/60 95 Awaiting placement . pt still needing sitter as pt is mentally challenged and needs supervision. d/w case management. Pt being evaluated by industrial engineering analyst care facility for placement. d/w sister and case management the care plan.
[2016-12-20 14:40] VITALS: BP 130/64
--- NOTE | 2016-12-20 15:14 | Patient Discharge Instructions ---
Discharge Instructions General Discharge Information You were seen/treated for: Constipation Pending placement Watch for these problems: Fevers, chills, abdominal pain, abdominal distention Special Instructions: Please follow-up with your PCP within 1-2 weeks of discharge. Please take all medications as directed Diet Continue normal diet: Yes Activity Full Activity/No Limits: Yes Acute Coronary Syndrome Inclusion Criteria At DC or during hospital stay patient has or had the following: ACS DIAGNOSIS No Discharge Core Measures Meds if any: Prescribed or Continued at Discharge Meds if any: NOT Prescribed or Continued at Discharge Congestive Heart Failure Inclusion Criteria At DC or during hospital stay patient has or had the following: CHF DIAGNOSIS No Discharge Core Measures Meds if any: Prescribed or Continued at Discharge Meds if any: NOT Prescribed or Continued at Discharge Cerebrovascular accident Inclusion Criteria At DC or during hospital stay patient has or had the following: CVA/TIA Diagnosis No Discharge Core Measures Meds if any: Prescribed or Continued at Discharge Meds if any: NOT Prescribed or Continued at Discharge Venous thromboembolism Inclusion Criteria VTE Diagnosis No VTE Type NONE VTE Confirmed by (Test) NONE Discharge Core Measures - Per Current guidelines, there needs to be overlap - treatment for the first 5 days of Warfarin therapy. - If discharged on Warfarin prior to 5 days of - overlap therapy, the patient will need to be - assessed for post discharge needs including - *Post discharge parental anticoagulation - *Warfarin and/or parental anticoagulation education - *Follow up date to check INR post discharge At least 5 days overlap therapy as Inpatient No Meds if any: Prescribed or Continued at Discharge Note: Overlap Therapy is Warfarin and Anticoagulant Meds if any: NOT Prescribed or Continued at Discharge
[2016-12-20 22:42] VITALS: BP 108/66
[2016-12-21 06:30] VITALS: BP 100/62
--- NOTE | 2016-12-21 07:13 | PN- Housestaff ---
Subjective Follow-up For: Mental retardation, intermediate manager rehabilitation placement Subjective: Patient was seen and examined this morning, she has sitter. No overnight events reported by the nurse or the sitter. Vital signs are stable. No acute complaint. Review of Systems Constitutional: Reports: no symptoms. Objective Last 24 Hrs of Vital Signs/I&O Vital Signs Date Time Temp Pulse Resp B/P Pulse O2 O2 Flow FiO2 Ox Delivery Rate 12/21 1419 97.6 104 20 114/58 96 12/21 0630 98.2 99 18 100/62 97 Room Air 12/20 2242 97.8 110 18 108/66 98 12/20 1717 Room Air Room Air Intake & Output 12/21 1600 12/21 0800 12/21 0000 Intake Total 720 120 Output Total Balance 720 120 Intake, Oral 720 120 Physical Exam General Appearance: Alert, Cooperative, No Acute Distress Skin: No Rashes, No Breakdown, No Significant Lesion HEENT: Atraumatic, PERRLA, EOMI, Mucous Membr. moist/pink Neck: Supple, No JVD Cardiovascular: Regular Rate, Normal S1, Normal S2, No Murmurs Lungs: Clear to Auscultation, Normal Air Movement Abdomen: Normal Bowel Sounds, Soft, No Tenderness Neurological: Normal Speech, Strength at 5/5 X4 Ext, Normal Tone, Sensation Intact, Cranial Nerves 3-12 NL, Reflexes 2+ Extremities: No Clubbing, No Cyanosis, No Edema, Normal Pulses Assessment/Plan Assessment: Patient remains calm while under supervision of family members or patient safety monitor. Placement is still pending per case management and bed search. Problem list: -History of mental retardation, pending long-term placement -Increased agitation -Constipation Plan: -Waiting for intermediate manager rehabilitation placement versus [facility] -Patient will continue to have 24 hour sitter for safety, given the underlying mental retardation, the 24 hour off sitter is not required in his case per rehabilitation case coordinator -Avoid delirium triggers -Continue Patient safety monitor -Continue home medications -Bowel regimen for constipation, patient was given lactulose today, she had small bowel movement this afternoon -DVT prophylaxis ALPS -Code DNR DNI -Diet regular Problem List: 1. Mental retardation 2. Hospital admission due to social situation Pain Ratin Pain Location: N/A Pain Goal: Remain pain free Pain Plan: Mild pain pathway Tomorrow's Labs & Rationales: NONE
--- NOTE | 2016-12-21 12:41 | PN- Att Addend ---
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 Sister who has been taking care for last few years is unable to do that . Constipation- added lactulose prn to stool softeners to see if that will help.
[2016-12-21 14:19] VITALS: BP 114/58
[2016-12-21 23:58] VITALS: BP 104/60
[2016-12-22 06:30] VITALS: BP 102/60
--- NOTE | 2016-12-22 07:08 | PN- Housestaff ---
Subjective Follow-up For: Mental retardation, [facility] rehabilitation placement Subjective: Patient was seen and examined this morning, she has sitter. No overnight events reported by the nurse or the sitter. Vital signs are stable. No acute complaint. Patient had small bowel movement yesterday Review of Systems Constitutional: Reports: see HPI. Objective Last 24 Hrs of Vital Signs/I&O Vital Signs Date Time Temp Pulse Resp B/P Pulse O2 O2 Flow FiO2 Ox Delivery Rate 12/22 1438 96.4 104 20 110/70 95 03 0630 97.9 70 18 102/60 95 Room Air 12/21 2358 97.5 92 20 104/60 96 Room Air Intake & Output 12/22 1600 12/22 0800 12/22 0000 Intake Total 800 100 100 Output Total Balance 800 100 100 Intake, Oral 800 100 100 Physical Exam General Appearance: Alert, Cooperative, No Acute Distress Skin: No Rashes, No Breakdown, No Significant Lesion HEENT: Atraumatic, PERRLA, EOMI, Mucous Membr. moist/pink Neck: Supple, No JVD Cardiovascular: Regular Rate, Normal S1, Normal S2, No Murmurs Lungs: Clear to Auscultation, Normal Air Movement Abdomen: Normal Bowel Sounds, Soft, No Tenderness Neurological: Normal Gait, Normal Speech, Strength at 5/5 X4 Ext, Normal Tone, Sensation Intact, Cranial Nerves 3-12 NL, Reflexes 2+ Extremities: No Clubbing, No Cyanosis, No Edema, Normal Pulses Assessment/Plan Assessment: Patient remains calm while under supervision of family members or patient safety monitor. Placement is still pending per case management and bed search. Problem list: -History of mental retardation, pending long-term placement -Increased agitation -Constipation Plan: -Waiting for [facility] rehabilitation placement versus [facility] placement -Patient will continue to have 24 hour sitter for safety, given the underlying mental retardation, the 24 hour off sitter is not required in his case per case operator -Avoid delirium triggers -Continue Patient safety monitor -Continue home medications -Bowel regimen for constipation -DVT prophylaxis ALPS -Code DNR DNI -Diet regular Problem List: 1. Mental retardation 2. Hospital admission due to social situation Pain Ratin Pain Location: None Pain Goal: Pain 4 or less Pain Plan: Mild pain pathway Tomorrow's Labs & Rationales: None
[2016-12-22 14:38] VITALS: BP 110/70
[2016-12-22 23:26] VITALS: BP 92/50
[2016-12-23 06:00] VITALS: BP 126/68
--- NOTE | 2016-12-23 07:11 | PN- Housestaff ---
See Addendum Subjective Follow-up For: Mental retardation, watermaster rehabilitation placement Subjective: Patient was seen and examined this morning, she has sitter. No overnight events reported by the nurse or the sitter. Vital signs are stable. No acute complaint. Patient had bowel movement yesterday. Review of Systems Constitutional: Reports: see HPI. Objective Last 24 Hrs of Vital Signs/I&O Vital Signs Date Time Temp Pulse Resp B/P Pulse O2 O2 Flow FiO2 Ox Delivery Rate 12/23 0600 98.0 91 20 126/68 99 Room Air 12/22 2326 98.1 92 20 92/50 97 Room Air 12/22 1438 96.4 104 20 110/70 95 Intake & Output 12/23 0800 12/23 0000 12/22 1600 Intake Total 600 960 800 Output Total Balance 600 960 800 Intake, IV 0 Intake, Oral 600 960 800 Number 1 Bowel Movements Physical Exam General Appearance: Alert, Cooperative, No Acute Distress Skin: No Rashes, No Breakdown, No Significant Lesion HEENT: Atraumatic, PERRLA, EOMI, Mucous Membr. moist/pink Neck: Supple, No JVD Cardiovascular: Regular Rate, Normal S1, Normal S2, No Murmurs Lungs: Clear to Auscultation, Normal Air Movement Abdomen: Normal Bowel Sounds, Soft, No Tenderness Neurological: Normal Gait, Normal Speech, Strength at 5/5 X4 Ext, Normal Tone, Sensation Intact, Cranial Nerves 3-12 NL, Reflexes 2+ Extremities: No Clubbing, No Cyanosis, No Edema, Normal Pulses Assessment/Plan Assessment: Patient remains calm while under supervision of family members or patient safety monitor. Placement is still pending per case management and bed search. Problem list: -History of mental retardation, pending long-term placement -Increased agitation -Constipation Plan: -Waiting for shelter rehabilitation placement versus assisted placement -Patient will continue to have 24 hour sitter for safety, given the underlying mental retardation, the 24 hour off sitter is not required in his case per top case assembler -Avoid delirium triggers -Continue Patient safety monitor -Continue home medications -Bowel regimen for constipation -DVT prophylaxis ALPS -Code DNR DNI -Diet regular Problem List: 1. Mental retardation 2. Hospital admission due to social situation Pain Ratin Pain Location: None Pain Goal: Pain 4 or less Pain Plan: Mild pain pathway Tomorrow's Labs & Rationales: None
[2016-12-23 14:31] VITALS: BP 98/60
[2016-12-23 22:08] VITALS: BP 94/56
[2016-12-24 06:59] VITALS: BP 120/60
--- NOTE | 2016-12-24 08:16 | PN- Housestaff ---
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 No overnight events reported by the nurse or the sitter. Vital signs are stable. No acute complaint. Patient had bowel movement today. Review of Systems Constitutional: Reports: see HPI. Objective Last 24 Hrs of Vital Signs/I&O Vital Signs Date Time Temp Pulse Resp B/P Pulse O2 O2 Flow FiO2 Ox Delivery Rate 12/24 0659 97.2 102 20 120/60 99 Room Air 12/23 2208 99.8 118 20 94/56 96 Room Air Intake & Output 12/24 1600 12/24 0800 12/24 0000 Intake Total 720 120 750 Output Total Balance 720 120 750 Intake, IV 0 Intake, Oral 720 120 750 Number 1 1 Bowel Movements Physical Exam General Appearance: Alert, Cooperative, No Acute Distress Skin: No Breakdown, No Significant Lesion, erythema over bilateral elbow, web of little finger bilateral HEENT: Atraumatic, PERRLA, EOMI, Mucous Membr. moist/pink Cardiovascular: Regular Rate, Normal S1, Normal S2, No Murmurs Lungs: Clear to Auscultation, Normal Air Movement Abdomen: Normal Bowel Sounds, Soft, No Tenderness Neurological: Normal Gait, Normal Speech, Strength at 5/5 X4 Ext, Normal Tone, Sensation Intact, Cranial Nerves 3-12 NL, Reflexes 2+ Extremities: No Clubbing, No Cyanosis, No Edema, Normal Pulses Assessment/Plan Assessment: Patient remains calm while under supervision of family members or patient safety monitor. Placement is still pending per case management and bed search. 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 Mental retardation 2. Hospital admission due to social situation Pain Ratin Pain Location: none Pain Goal: Pain 4 or less Pain Plan: Midl pain pathway Tomorrow's Labs & Rationales: NONE KENROY MCDOWELL,RAFAELA 12/24/16 1231: Attending MD Review Statement Attending Statement Attending MD Statement: examined this patient, discuss w/resident/PA/SURGICAL DRESSING MAKER, agreed w/resident/PA/SURGICAL DRESSING MAKER, reviewed EMR data (avail), discussed with nursing, amended to note Attending Assessment/Plan: Patient seen and examined, difficult to communicate secondary to having mental retardation. She is awaiting placement. Hemodynamically stable and no other acute issues. Continue all current management.
[2016-12-24 22:08] VITALS: BP 110/68
[2016-12-25 07:00] VITALS: BP 102/60
--- NOTE | 2016-12-25 09:34 | PN- Housestaff ---
See Addendum Subjective Follow-up For: intermediate placement Subjective: saw pt as she was ambulating through the [address] with service tech. She stated that she felt well and was excited for her sister to visit. No acute overnight events or complaints. Review of Systems Constitutional: Reports: no symptoms. Objective Last 24 Hrs of Vital Signs/I&O Vital Signs Date Time Temp Pulse Resp B/P Pulse O2 O2 Flow FiO2 Ox Delivery Rate 12/25 699 97.9 110 20 102/60 98 Room Air 12/25 2207 97.6 110 20 110/68 97 Intake & Output 12/25 1600 12/25 0800 12/25 0000 Intake Total 240 Output Total Balance 240 Intake, Oral 240 Physical Exam General Appearance: Alert, No Acute Distress Skin: No Rashes, No Significant Lesion HEENT: Atraumatic, PERRLA Neck: Supple Cardiovascular: Regular Rate, Normal S1, Normal S2 Lungs: Normal Air Movement Abdomen: Soft, No Tenderness Current Medications: Current Medications Sig/Yessica Start time Last Medication Dose Route Stop Time Status Admin Acetaminophen 650 MG Q6P PRN 12/150 AC PO Acetaminophen 1,000 MG Q6P PRN 12/15 2200 AC IV Bisacodyl 10 MG ONCE PRN 12/19 1445 AC 12/20 [place] 0812 Docusate Sodium 100 MG BID 12/15 2130 AC 12/25 PO 0738 Glycerin/Mineral Oil 1 KATIE TID PRN 12/23 1145 AC TOP Lactulose 20 GM DAILY 12/21 1030 AC 12/25 PO 0738 Psyllium Hydrophilic 1 PAC DAILY 12/20 1403 AC 12/25 Mucilloid PO 0738 Quetiapine Fumarate 50 MG QAM 12/17 1000 AC 12/25 PO 0738 Quetiapine Fumarate 100 MG 12/16 2200 AC 12/24 PO 2055 Senna/Docusate Sodium 2 TAB DAILY 12/15 2130 AC 12/25 PO 0738 Assessment/Plan Assessment: Patient remains calm while under supervision of family members or patient safety monitor. Placement is still pending per case management and bed search. Problem list: -History of mental retardation, pending long-term placement -Increased agitation -Constipation Plan: Pt did well last night under supervision of sitter. He is pending placement. He is waiting for intermediate rehabilitation placement versus half-way placement -Patient will continue to have 24 hour sitter for safety. 24 hour off sitter is not required in his case per case packer -Avoid delirium triggers -Continue Patient safety monitor -Continue home medications -Bowel regimen for constipation -DVT prophylaxis ALPS -Code DNR DNI -Diet regular Problem List: 1. Mental retardation 2. Hospital admission due to social situation 3. Urinary incontinence 4. Constipation 5. Nausea & vomiting 6. Abdominal pain Pain Ratin Pain Location: none Pain Goal: Remain pain free Pain Plan: current reg Tomorrow's Labs & Rationales: none
[2016-12-25 14:05] VITALS: BP 118/60
[2016-12-25 21:52] VITALS: BP 124/70
[2016-12-26 06:35] VITALS: BP 100/60
--- NOTE | 2016-12-26 07:08 | PN- Housestaff ---
MEGAN MCDOWELL,[facility] 12/26/16 0708: Subjective Follow-up For: Mental retardation, rodent exterminator rehabilitation placement Subjective: Patient was seen and examined this morning, she has sitter. No overnight events reported by the nurse or the sitter. Vital signs are stable. No acute complaint. Main and was on 12/24. Review of Systems Constitutional: Reports: see HPI. Objective Last 24 Hrs of Vital Signs/I&O Vital Signs Date Time Temp Pulse Resp B/P Pulse O2 O2 Flow FiO2 Ox Delivery Rate 12/26 1410 98.2 94 20 132/62 98 Room Air 12/26 0635 97.9 100 20 100/60 96 Room Air 12/25 2152 97.9 101 20 124/70 96 Intake & Output 12/26 1600 12/26 0800 12/26 0000 Intake Total 600 100 600 Output Total Balance 600 100 600 Intake, Oral 600 100 600 Physical Exam General Appearance: Alert, Cooperative, No Acute Distress Skin: No Rashes, No Breakdown, No Significant Lesion HEENT: Atraumatic, PERRLA, EOMI, Mucous Membr. moist/pink Neck: Supple, No JVD Cardiovascular: Regular Rate, Normal S1, Normal S2, No Murmurs Lungs: Clear to Auscultation, Normal Air Movement Abdomen: Normal Bowel Sounds, Soft, No Tenderness Neurological: Normal Gait, Normal Speech, Strength at 5/5 X4 Ext, Normal Tone, Sensation Intact, Cranial Nerves 3-12 NL, Reflexes 2+ Extremities: No Clubbing, No Cyanosis, No Edema, Normal Pulses Assessment/Plan Assessment: Assessment: Patient remains calm while under supervision of family members or patient safety monitor. Placement is still pending per case management and bed search. Problem list: -History of mental retardation, pending long-term placement -Increased agitation -Constipation Plan: -Waiting for rodent exterminator rehabilitation placement versus care home placement -Patient will continue to have 24 hour sitter for safety, given the underlying mental retardation, the 24 hour off sitter is not required in her case per case management rn -Avoid delirium triggers -Continue Patient safety monitor -Continue home medications -Bowel regimen for constipation -DVT prophylaxis ALPS -Code DNR DNI -Diet regular Problem List: 1. Altered mental status 2. Hospital admission due to social situation Pain Ratin Pain Location: N/A Pain Goal: Pain 4 or less Pain Plan: Mild pain pathway Tomorrow's Labs & Rationales: NONE MILTON DEVINE MD 12/26/16 2235: Attending MD Review Statement Attending Statement Attending MD Statement: examined this patient, discuss w/resident/PA/PARTNER INTEGRATION PLANNER, agreed w/resident/PA/PARTNER INTEGRATION PLANNER, reviewed EMR data (avail), discussed with nursing, discussed with case mgmt, amended to note Attending Assessment/Plan: The patient was seen and discussed with house staff. Agree with the plan of care as outlined.
[2016-12-26 14:10] VITALS: BP 132/62
[2016-12-26 22:05] VITALS: BP 120/68
[2016-12-27 06:25] VITALS: BP 116/64
--- NOTE | 2016-12-27 07:07 | PN- Housestaff ---
See Addendum Subjective Follow-up For: Mental retardation, terminal carman rehabilitation placement Subjective: Patient was seen and examined this morning, she has sitter. No overnight events reported by the nurse or the sitter. Vital signs are stable. No acute complaint. BM was on 12/24. Review of Systems Constitutional: Reports: see HPI. Objective Last 24 Hrs of Vital Signs/I&O Vital Signs Date Time Temp Pulse Resp B/P Pulse O2 O2 Flow FiO2 Ox Delivery Rate 12/27 0625 97.9 108 18 116/64 96 Room Air 12/26 2205 97.7 100 20 120/68 97 12/26 1410 98.2 94 20 132/62 98 Room Air Intake & Output 12/27 0800 12/27 0000 12/26 1600 Intake Total 480 600 Output Total Balance 480 600 Intake, Oral 480 600 Physical Exam General Appearance: Alert, Oriented X3, Cooperative, No Acute Distress Skin: No Rashes, No Breakdown, No Significant Lesion HEENT: Atraumatic, PERRLA, EOMI, Mucous Membr. moist/pink Neck: Supple Cardiovascular: Regular Rate, Normal S1, Normal S2, No Murmurs Lungs: Clear to Auscultation, Normal Air Movement Abdomen: Normal Bowel Sounds, Soft, No Tenderness Neurological: Normal Gait, Normal Speech, Strength at 5/5 X4 Ext, Normal Tone, Sensation Intact, Cranial Nerves 3-12 NL, Reflexes 2+ Extremities: No Clubbing, No Cyanosis, No Edema, Normal Pulses Assessment/Plan Assessment: Assessment: Patient remains calm while under supervision of family members or patient safety monitor. Placement is still pending per case management and bed search. Problem list: -History of mental retardation, pending long-term placement -Increased agitation -Constipation Plan: -Waiting for terminal carman rehabilitation placement versus alf placement -Patient will continue to have 24 hour sitter for safety, given the underlying mental retardation, the 24 hour off sitter is not required in her case per case coordinator -Avoid delirium triggers -Continue Patient safety monitor -Continue home medications -Bowel regimen for constipation -DVT prophylaxis ALPS -Code DNR DNI -Diet regular Problem List: 1. Altered mental status 2. Hospital admission due to social situation Pain Ratin Pain Location: NONE Pain Goal: Pain 4 or less Pain Plan: mild pain pathway Tomorrow's Labs & Rationales: NONE
[2016-12-27 14:34] VITALS: BP 104/72
[2016-12-27 21:22] VITALS: BP 16/78
[2016-12-28 06:00] VITALS: BP 112/70
--- NOTE | 2016-12-28 07:27 | PN- Housestaff ---
See Addendum MEGAN MCDOWELL,[facility] 12/28/16 0727: Subjective Follow-up For: Mental retardation, body line finisher rehabilitation placement Subjective: Patient was seen and examined this morning, she has sitter. No overnight events reported by the nurse or the sitter. Vital signs are stable. No acute complaint. Review of Systems Constitutional: Reports: no symptoms. Objective Last 24 Hrs of Vital Signs/I&O Vital Signs Date Time Temp Pulse Resp B/P Pulse O2 O2 Flow FiO2 Ox Delivery Rate 12/28 06 98.0 78 18 112/70 99 Room Air 12/27 2122 96.5 88 18 16/78 99 Room Air 12/27 1600 Room Air 12/27 1434 97.1 100 20 104/72 98 Intake & Output 12/28 1600 12/28 0800 12/28 0000 Intake Total 500 Output Total Balance 500 Intake, Oral 500 Physical Exam General Appearance: Alert, Cooperative, No Acute Distress Skin: No Rashes, No Breakdown, No Significant Lesion HEENT: Atraumatic, PERRLA, EOMI, Mucous Membr. moist/pink Cardiovascular: Regular Rate, Normal S1, Normal S2, No Murmurs Lungs: Clear to Auscultation, Normal Air Movement Abdomen: Normal Bowel Sounds, Soft, No Tenderness Neurological: Normal Gait, Normal Speech, Strength at 5/5 X4 Ext, Normal Tone, Sensation Intact, Cranial Nerves 3-12 NL, Reflexes 2+ Extremities: No Clubbing, No Cyanosis, No Edema, Normal Pulses Assessment/Plan Assessment: Assessment: Patient remains calm while under supervision of family members or patient safety monitor. Placement is still pending per case management and bed search. Problem list: -History of mental retardation, pending long-term placement -Increased agitation -Constipation Plan: -Waiting for [facility] rehabilitation placement versus nursing home placement -Patient will continue to have 24 hour sitter for safety, given the underlying mental retardation, the 24 hour off sitter is not required in her case per family independence case manager -Avoid delirium triggers -Continue Patient safety monitor -Continue home medications -Bowel regimen for constipation -DVT prophylaxis ALPS -Code DNR DNI -Diet regular Problem List: 1. Mental retardation 2. Hospital admission due to social situation Pain Ratin Pain Location: NONE Pain Goal: Pain 4 or less Pain Plan: MILD PAIN PATHWAY Tomorrow's Labs & Rationales: NONE MILTON DEVINE MD 12/28/16 1714: Attending MD Review Statement Attending Statement Attending MD Statement: examined this patient, discuss w/resident/PA/FOOD TRUCK CATERER, agreed w/resident/PA/FOOD TRUCK CATERER, reviewed EMR data (avail), discussed with nursing, discussed with case mgmt, amended to note Attending Assessment/Plan: The patient was seen and discussed with house staff. Agree with the plan of care as outlined.
[2016-12-28 14:01] VITALS: BP 120/50
[2016-12-28 23:51] VITALS: BP 130/84
--- NOTE | 2016-12-29 07:11 | PN- Housestaff ---
MEGAN MCDOWELL,[facility] 12/29/16 0711: Subjective Follow-up For: Mental retardation, technician terminal and repeater rehabilitation placement Subjective: Patient was seen and examined this morning, she has sitter. No overnight events reported by the nurse or the sitter. Vital signs are stable. No acute complaint. Last bowel movement 12/27. Review of Systems Constitutional: Reports: see HPI. Objective Last 24 Hrs of Vital Signs/I&O Vital Signs Date Time Temp Pulse Resp B/P Pulse O2 O2 Flow FiO2 Ox Delivery Rate 12/29 0742 97.1 94 20 118/60 97 Room Air 12/28 2351 98.9 102 20 130/84 98 Room Air 12/28 1401 97.6 96 20 120/50 97 Room Air Physical Exam General Appearance: Alert, Cooperative, No Acute Distress Skin: No Rashes, No Breakdown, No Significant Lesion HEENT: Atraumatic, PERRLA, EOMI, Mucous Membr. moist/pink Cardiovascular: Regular Rate, Normal S1, Normal S2, No Murmurs Lungs: Clear to Auscultation, Normal Air Movement Abdomen: Normal Bowel Sounds, Soft, No Tenderness Neurological: Normal Gait, Normal Speech, Strength at 5/5 X4 Ext, Normal Tone, Sensation Intact, Cranial Nerves 3-12 NL, Reflexes 2+ Extremities: No Clubbing, No Cyanosis, No Edema, Normal Pulses Assessment/Plan Assessment: Assessment: Patient remains calm while under supervision of family members or patient safety monitor. Placement is still pending per case management and bed search. Problem list: -History of mental retardation, pending long-term placement -Increased agitation -Constipation Plan: -Waiting for intermediate rehabilitation placement versus halfway placement -Patient will continue to have 24 hour sitter for safety, given the underlying mental retardation, the 24 hour off sitter is not required in her case per telehealth case manager -Avoid delirium triggers -Continue Patient safety monitor -Continue home medications -Bowel regimen for constipation -DVT prophylaxis ALPS -Code DNR DNI -Diet regular Problem List: 1. Altered mental status 2. Hospital admission due to social situation Pain Ratin Pain Location: none Pain Goal: Pain 4 or less Pain Plan: Mild pain pathway Tomorrow's Labs & Rationales: NONE MILTON DEVINE MD 12/29/16 1217: Attending Review Statement Attending Statement Attending MD Statement: examined this patient, discuss w/resident/PA/OCEAN FISHING GUIDE, reviewed EMR data (avail), discussed with case mgmt, amended to note Attending Assessment/Plan: The patient was seen and agree with plan of care. CRM awaiting [facility].
[2016-12-29 07:42] VITALS: BP 118/60
[2016-12-29 14:48] VITALS: BP 110/70
--- NOTE | 2016-12-30 07:13 | PN- Housestaff ---
MEGAN MCDOWELL,[facility] 12/30/16 0712: Subjective Follow-up For: Mental retardation Social admission for house fellow rehabilitation placement Subjective: Patient was seen and examined this morning, she has sitter. No overnight events reported by the nurse or the sitter. Vital signs are stable. No acute complaint. Last bowel movement 12/27. Review of Systems Constitutional: Reports: no symptoms. Objective Last 24 Hrs of Vital Signs/I&O Vital Signs Date Time Temp Pulse Resp B/P Pulse O2 O2 Flow FiO2 Ox Delivery Rate 12/30 0734 98.3 90 20 120/70 96 Room Air 12/29 1448 97.3 103 20 110/70 97 Intake & Output 12/30 1600 12/30 0800 12/30 0000 Intake Total 120 240 Output Total Balance 120 240 Intake, Oral 120 240 Physical Exam General Appearance: Alert, Cooperative, No Acute Distress Skin: No Rashes, No Breakdown, No Significant Lesion HEENT: Atraumatic, PERRLA, EOMI, Mucous Membr. moist/pink Neck: Supple Cardiovascular: Regular Rate, Normal S1, Normal S2, No Murmurs Lungs: Clear to Auscultation, Normal Air Movement Abdomen: Normal Bowel Sounds, Soft, No Tenderness Neurological: Normal Gait, Normal Speech, Strength at 5/5 X4 Ext, Normal Tone, Sensation Intact, Cranial Nerves 3-12 NL, Reflexes 2+ Extremities: No Clubbing, No Cyanosis, No Edema, Normal Pulses Assessment/Plan Assessment: Assessment: Patient remains calm while under supervision of family members or patient safety monitor. Placement is still pending per case management and bed search. Problem list: -History of mental retardation, pending long-term placement -Increased agitation -Constipation Plan: -Waiting for prison rehabilitation placement versus alf placement -Patient will continue to have 24 hour sitter for safety, given the underlying mental retardation, the 24 hour off sitter is not required in her case per case liner -Avoid delirium triggers -Continue Patient safety monitor -Continue home medications -Bowel regimen for constipation -DVT prophylaxis ALPS -Code DNR DNI -Diet regular Problem List: 1. Altered mental status 2. Hospital admission due to social situation Pain Ratin Pain Location: None Pain Goal: Pain 4 or less Pain Plan: Mild pain pathway Tomorrow's Labs & Rationales: None MILTON DEVINE MD 12/30/16 0990: Attending MD Review Statement Attending Statement Attending MD Statement: examined this patient, discuss w/resident/PA/SEO MANAGER, agreed w/resident/PA/SEO MANAGER, reviewed EMR data (avail), discussed with nursing, discussed with case mgmt, amended to note Attending Assessment/Plan: The patient was seen and discussed with house staff. Agree with plan of care. Going to rehab/[facility] on Tuesday 01/02.
[2016-12-30 07:34] VITALS: BP 120/70
[2016-12-30 11:24] VITALS: BP 120/70
[2016-12-30 14:29] VITALS: BP 122/78
[2016-12-30 22:50] VITALS: BP 121/70
[2016-12-31 06:55] VITALS: BP 116/70
--- NOTE | 2016-12-31 08:13 | PN- Housestaff ---
MEGAN MCDOWELL,[facility] 12/31/16 0813: Subjective Follow-up For: Mental retardation Social admission for termite exterminator helper rehabilitation placement Subjective: Patient was seen and examined this morning, she has sitter. No overnight events reported by the nurse or the sitter. Vital signs are stable. No acute complaint. Review of Systems Constitutional: Reports: see HPI. Objective Last 24 Hrs of Vital Signs/I&O Vital Signs Date Time Temp Pulse Resp B/P Pulse O2 O2 Flow FiO2 Ox Delivery Rate 12/31 0655 97.2 75 20 116/70 92 Room Air 12/30 2250 97.0 81 20 121/70 98 Room Air 12/30 1429 97.9 86 20 122/78 97 Room Air 12/30 1124 98.3 90 20 120/70 Intake & Output 12/31 1600 12/31 0800 12/31 0000 Intake Total 150 300 Output Total Balance 150 300 Intake, Oral 150 300 Physical Exam General Appearance: Alert, Cooperative, No Acute Distress Skin: No Rashes, No Breakdown, No Significant Lesion HEENT: Atraumatic, PERRLA, EOMI, Mucous Membr. moist/pink Neck: Supple, No JVD Cardiovascular: Regular Rate, Normal S1, Normal S2, No Murmurs Lungs: Clear to Auscultation, Normal Air Movement Abdomen: Normal Bowel Sounds, Soft, No Tenderness Neurological: Normal Gait, Normal Speech, Strength at 5/5 X4 Ext, Normal Tone, Sensation Intact, Cranial Nerves 3-12 NL, Reflexes 2+ Extremities: No Clubbing, No Cyanosis, No Edema, Normal Pulses Assessment/Plan Assessment: Assessment: Patient remains calm while under supervision of family members or patient safety monitor. Placement is still pending per case management and bed search. Problem list: -History of mental retardation, pending long-term placement -Increased agitation -Constipation Plan: -Waiting for termite exterminator helper rehabilitation placement versus [facility] placement -Patient will continue to have 24 hour sitter for safety, given the underlying mental retardation, the 24 hour off sitter is not required in her case per correctional counselor/case manager -Avoid delirium triggers -Continue Patient safety monitor -Continue home medications -Bowel regimen for constipation -DVT prophylaxis ALPS -Code DNR DNI -Diet regular -Patient is for discharge on Monday Problem List: 1. Mental retardation 2. Hospital admission due to social situation Pain Ratin Pain Location: None Pain Goal: Pain 4 or less Pain Plan: Mild pain pathway Tomorrow's Labs & Rationales: None RANJITH CASTORENA 12/31/16 1549: Objective Last 24 Hrs of Vital Signs/I&O Vital Signs Date Time Temp Pulse Resp B/P Pulse O2 O2 Flow FiO2 Ox Delivery Rate 12/31 1446 97.0 101 20 120/70 98 12/31 0655 97.2 75 20 116/70 92 Room Air 12/30 2250 97.0 81 20 121/70 98 Room Air Intake & Output 12/31 1600 12/31 0800 12/31 0000 Intake Total 400 150 300 Output Total Balance 400 150 300 Intake, Oral 400 150 300 Attending MD Review Statement Attending Statement Attending MD Statement: examined this patient, discuss w/resident/PA/DIRECTOR OF BUSINESS APPLICATIONS, agreed w/resident/PA/DIRECTOR OF BUSINESS APPLICATIONS, reviewed EMR data (avail), discussed with nursing Attending Assessment/Plan: Pt awaiting placement. Likely discharge on monday.
[2016-12-31 14:46] VITALS: BP 120/70
[2017-01-01 06:00] VITALS: BP 112/60
--- NOTE | 2017-01-01 08:14 | PN- Housestaff ---
MEGAN MCDOWELL,[facility] 01/01/17 0813: Subjective Follow-up For: Mental retardation Social admission for adjunct faculty for medical terminology rehabilitation placement Subjective: Subjective: Patient was seen and examined this morning, she has sitter. No overnight events reported by the nurse or the sitter. Vital signs are stable. No acute complaint. She is for possible discharge to long-term rehabilitation Center tomorrow Tuesday 01/02. Review of Systems Constitutional: Reports: see HPI. Objective Last 24 Hrs of Vital Signs/I&O Vital Signs Date Time Temp Pulse Resp B/P Pulse O2 O2 Flow FiO2 Ox Delivery Rate 01/01 0600 97.8 108 18 112/60 97 Room Air 12/31 1446 97.0 101 20 120/70 98 Intake & Output 01/01 1600 01/01 0800 01/01 0000 Intake Total 150 300 Output Total Balance 150 300 Intake, Oral 150 300 Number 1 Bowel Movements Physical Exam General Appearance: Alert, Cooperative, No Acute Distress Skin: No Rashes, No Breakdown, No Significant Lesion HEENT: Atraumatic, PERRLA, EOMI, Mucous Membr. moist/pink Neck: Supple Cardiovascular: Regular Rate, Normal S1, Normal S2, No Murmurs Lungs: Clear to Auscultation, Normal Air Movement Abdomen: Normal Bowel Sounds, Soft, No Tenderness Neurological: Normal Gait, Normal Speech, Strength at 5/5 X4 Ext, Normal Tone, Sensation Intact, Cranial Nerves 3-12 NL, Reflexes 2+ Extremities: No Clubbing, No Cyanosis, No Edema, Normal Pulses Assessment/Plan Assessment: Assessment: Patient remains calm while under supervision of family members or patient safety monitor. Placement is still pending per case management and bed search. Problem list: -History of mental retardation, pending long-term placement -Increased agitation -Constipation Plan: -Waiting for correction rehabilitation placement versus intermediate placement -Patient will continue to have 24 hour sitter for safety, given the underlying mental retardation, the 24 hour off sitter is not required in her case per family service caseworker -Patient is for possible discharge tomorrow Monday01/02/17 to long-term rehabilitation center -Avoid delirium triggers -Continue Patient safety monitor -Continue home medications -Bowel regimen for constipation -DVT prophylaxis ALPS -Code DNR DNI -Diet regular Problem List: 1. Altered mental status 2. Hospital admission due to social situation Pain Ratin Pain Location: None Pain Goal: Pain 4 or less Pain Plan: Mild pain pathway Tomorrow's Labs & Rationales: None RANJITH CASTORENA 01/01/17 1454: Attending MD Review Statement Attending Statement Attending MD Statement: examined this patient, discuss w/resident/PA/ROLLER STAINER, agreed w/resident/PA/ROLLER STAINER, reviewed EMR data (avail) Attending Assessment/Plan: Pt awaiting adjunct faculty for medical terminology placement.
[2017-01-01 15:36] VITALS: BP 118/86
[2017-01-01 22:48] VITALS: BP 108/60
[2017-01-02 06:25] VITALS: BP 112/60
--- NOTE | 2017-01-02 07:31 | PN- Housestaff ---
MEGAN MCDOWELL,[facility] 01/02/17 0730: Subjective Follow-up For: Mental retardation Social admission for extermination supervisor rehabilitation placement Subjective: Patient was seen and examined this morning, she has sitter. No overnight events reported by the nurse or the sitter. Vital signs are stable. No acute complaint. She is for possible discharge to long-term rehabilitation Center today Review of Systems Constitutional: Reports: see HPI. Objective Last 24 Hrs of Vital Signs/I&O Vital Signs Date Time Temp Pulse Resp B/P Pulse O2 O2 Flow FiO2 Ox Delivery Rate 01/02 1430 98.0 97 18 138/70 97 Room Air 01/02 1307 98.3 90 20 120/70 01/02 0625 97.5 75 18 112/60 96 Room Air 01/01 2248 97.6 84 18 108/60 97 Room Air Intake & Output 01/02 1600 01/02 0800 01/02 0000 Intake Total 300 300 Output Total Balance 300 300 Intake, Oral 300 300 Physical Exam General Appearance: Alert, Cooperative, No Acute Distress Skin: No Rashes, No Breakdown, No Significant Lesion HEENT: Atraumatic, PERRLA, EOMI, Mucous Membr. moist/pink Cardiovascular: Regular Rate, Normal S1, Normal S2, No Murmurs Lungs: Clear to Auscultation, Normal Air Movement Abdomen: Normal Bowel Sounds, Soft, No Tenderness Neurological: Normal Gait, Normal Speech, Strength at 5/5 X4 Ext, Normal Tone, Sensation Intact, Cranial Nerves 3-12 NL, Reflexes 2+ Extremities: No Clubbing, No Cyanosis, No Edema, Normal Pulses, No Tenderness/ Swelling Assessment/Plan Assessment: Assessment: Patient remains calm while under supervision of family members or patient safety monitor. Placement is still pending per case management and bed search. Problem list: -History of mental retardation, pending long-term placement -Increased agitation -Constipation Plan: -Waiting for snf rehabilitation placement versus fpc placement -Patient will continue to have 24 hour sitter for safety, given the underlying mental retardation, the 24 hour off sitter is not required in her case per watch caser -Patient is for possible discharge today to long-term rehabilitation center -Avoid delirium triggers -Continue Patient safety monitor -Continue home medications -Bowel regimen for constipation -DVT prophylaxis ALPS -Code DNR DNI -Diet regular Problem List: 1. Hospital admission due to social situation 2. Mental retardation Pain Ratin Pain Location: None Pain Goal: Pain 4 or less Pain Plan: Mild pain pathway Tomorrow's Labs & Rationales: None MILTON DEVINE MD 01/02/17 1352: Attending MD Review Statement Attending Statement Attending MD Statement: examined this patient, discuss w/resident/PA/HYDRAMATIC MECHANIC, agreed w/resident/PA/HYDRAMATIC MECHANIC, reviewed EMR data (avail), discussed with nursing, amended to note Attending Assessment/Plan: The patient was seen and agree with plan of care. OK to [facility].
[2017-01-02 13:07] VITALS: BP 120/70
[2017-01-02] MEDS ORDERED: LACTULOSE20 GM/30 M PO (14:05)
[2017-01-02] MEDS ORDERED: LUBRIDERM DAIL177 ML TOP (14:06)
[2017-01-02] MEDS ORDERED: LORATADINE10 M1 PO (14:06)
[2017-01-02 14:30] VITALS: BP 138/70
== END 2017-01-02 14:30 | DRG 884 ==
LOC: ENRESERVTM → ENRESERVDT → ERH 08:27 → ERHI 17:18 → 2NA 17:18
PROVIDERS: Physician Assistant; ADMIT Internal Medicine
DX: R45.1 Restlessness and agitation (principal); F72 Severe intellectual disabilities; K59.00 Constipation, unspecified; Z66 Do not resuscitate
CPT/HCPCS: 2NAP; 74177; 81003; 87086; 93005; 93010; J1650